=== PATIENT | female | born 1925 | race Caucasian/White ===

== ENCOUNTER 2017-01-01 01:29 | Emergency (ER) | payer MEDICARE, OTHER ==
[2017-01-01 01:50] VITALS: BP 144/77
--- NOTE | 2017-01-01 02:15 | EDM.PDOC ---
ED HPI GENERAL MEDICAL PROBLEM - General Chief Complaint: Gastrointestinal Problem Stated Complaint: CONSTIPATION Time Seen by Provider: 01/01/17 02:10 Source of Information: Reports: Patient, Family History Limitations: Reports: No Limitations - History of Present Illness INITIAL COMMENTS - FREE TEXT/NARRATIVE: pt has been pushing and trying to have a bm. She has been not having a bm for 2 days. Onset: Gradual Duration: Day(s): Location: Reports: Abdomen Associated Symptoms: Reports: Other ( constipation. ) Abdominal Pain Score (Numeric/FACES): 4 - Related Data Allergies Allergy/AdvReac Type Severity Reaction Status Date / Time penicillin G Allergy Unknown Hives Verified 05/20/16 15:46 Home Meds: Home Meds Docusate Sodium [Colace] 100 mg PO DAILY 12/27/13 [History] Acetaminophen [Tylenol Arthritis Pain] 650 mg PO Q6H 12/22/15 [History] Pantoprazole [ProTONIX] 40 mg PO DAILY 01/13/16 [History] Carvedilol [Carvedilol] 3.125 mg PO DAILY 01/01/17 [History] Lisinopril [Prinivil] 2.5 mg PO DAILY 01/01/17 [History] Past Medical History HEENT History: Reports: Allergic Rhinitis, Cataract, Hard of Hearing, Impaired Vision, Macular Degeneration, Other (See Below) Other HEENT History: cornea problems with right eye Cardiovascular History: Reports: Heart Murmur, Hypertension Other Cardiovascular History: "heart valve problem" Gastrointestinal History: Reports: Chronic Constipation, Colon Polyp, GERD, Other (See Below) Other Gastrointestinal History: Reports bladder medication causes side effect of loose stools Genitourinary History: Reports: Urinary Incontinence, UTI, Recurrent, Other ( See Below) Other Genitourinary History: Urinary frequency 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: Musculoskeletal History: Reports: Arthritis, Back Pain, Chronic, Fracture, Osteoarthritis, Other (See Below) Other Musculoskeletal History: ankle Psychiatric History: Reports: Anxiety - Infectious Disease History Infectious Disease History: Reports: Chicken Pox, Measles - Past Surgical History HEENT Surgical History: Reports: Adenoidectomy, Cataract Surgery, Tonsillectomy Female Surgical History: Reports: Hysterectomy, LEEP, Other (See Below) Musculoskeletal Surgical History: Reports: Other (See Below) Social & Family History - Tobacco Use Smoking Status *Q: Never Smoker Second Hand Smoke Exposure: No - Caffeine Use Caffeine Use: Reports: Coffee - Alcohol Use Days Per Week of Alcohol Use: 0 - Recreational Drug Use Recreational Drug Use: No - Living Situation & Occupation Living situation: Reports: , Alone ED ROS GENERAL - Review of Systems Review Of Systems: See Below Constitutional: Reports: No Symptoms HEENT: Reports: No Symptoms Respiratory: Reports: No Symptoms Cardiovascular: Reports: No Symptoms Endocrine: Reports: No Symptoms GI/Abdominal: Reports: Other (pressure in the rectum. ) : Reports: No Symptoms Musculoskeletal: Reports: No Symptoms ED EXAM, GI/ABD - Physical Exam Exam: See Below Text/Narrative:: pt is having pressure in the rectum. She is not having severe abdomanal pain. Exam Limited By: No Limitations General Appearance: Alert, Mild Distress Ears: Normal External Exam Nose: Normal Inspection Throat/Mouth: Normal Inspection Head: Atraumatic Neck: Normal Inspection Respiratory/Chest: No Respiratory Distress Cardiovascular: Regular Rate, Rhythm GI/Abdominal Exam: Other ( abdoman does not seem distended, it is soft. ) Rectal (Female) Exam: Other (pt has alot of soft sstool present. ) Back Exam: Other (no new findings. ) Course - Vital Signs Last Recorded V/S: Last Vital Signs Temp 37.2 C 01/01/17 01:48 Pulse 102 H 01/01/17 01:48 Resp 16 01/01/17 01:48 BP 144/77 H 01/01/17 01:48 Pulse Ox 93 L 01/01/17 01:48 - Orders/Labs/Meds Orders: Active Orders 24 hr Category Date Time Status Enema [RC] ASDIRECTED Care 01/01/17 02:09 Active - Re-Assessments/Exams Free Text/Narrative Re-Assessment/Exam: 01/01/17 02:13 rectal exam showed a fair mount of stool present. A fleet enema was tried. She had excellent results with this. The stool was soft. 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 If she is unable to pass stool try a ducolax supp. - My Orders Last 24 Hours: My Active Orders 01/01/17 02:09 Enema [RC] ASDIRECTED - Assessment/Plan Last 24 Hours: My Active Orders 01/01/17 02:09 Enema [RC] ASDIRECTED
== END 2017-01-01 02:50 | disposition home or self-care (01) ==
LOC: JP.ED 01:29
DX: K59.00 Constipation, unspecified (principal); I10 Essential (primary) hypertension; K21.9 Gastro-esophageal reflux disease without esophagitis; M19.90 Unspecified osteoarthritis, unspecified site; F41.9 Anxiety disorder, unspecified; Z87.440 Personal history of urinary (tract) infections; Z90.49 Acquired absence of other specified parts of digestive tract; Z98.49 Cataract extraction status, unspecified eye; Z90.710 Acquired absence of both cervix and uterus; Z79.899 Other long term (current) drug therapy; Z88.0 Allergy status to penicillin
CPT/HCPCS: 99283

== ENCOUNTER 2017-02-25 14:10 | Emergency (ER) | payer MEDICARE, OTHER ==
--- NOTE | 2017-02-25 15:22 | EDM.PDOC ---
ED HPI GENERAL MEDICAL PROBLEM - General Chief Complaint: Gastrointestinal Problem Stated Complaint: ADDED MEDICATION LOOSE STOOLS Time Seen by Provider: 02/25/17 14:55 Source of Information: Reports: Patient History Limitations: Reports: No Limitations - History of Present Illness INITIAL COMMENTS - FREE TEXT/NARRATIVE: Lisa presents today with complaints of diarrhea for 2 days. She reports loose stools that have improved since she started a new medication per Dr. Caballero methotrexate and folic acid. Lisa reports she telephoned Dr. aCballero and was instructed to report to the ER. She denies fever chills, nausea, vomiting, abdominal or back/flank pain. She denies blood stools. She does report flare of hemorrhoids at times. Onset Date: 02/23/17 Duration: Day(s):, Intermittent, Other (loose stools. ) denies Pain Score (Numeric/FACES): 0 - Related Data Allergies Allergy/AdvReac Type Severity Reaction Status Date / Time penicillin G Allergy Unknown Hives Verified 02/25/17 14:24 Home Meds: Home Meds Docusate Sodium [Colace] 100 mg PO DAILY 12/27/13 [History] Acetaminophen [Tylenol Arthritis Pain] 650 mg PO Q6H 12/22/15 [History] Pantoprazole [ProTONIX] 40 mg PO DAILY 01/13/16 [History] Carvedilol [Carvedilol] 3.125 mg PO DAILY 01/01/17 [History] Lisinopril [Prinivil] 2.5 mg PO DAILY 01/01/17 [History] Folic Acid 1 mg PO DAILY 02/25/17 [History] Methotrexate 7.5 mg PO Q7D 02/25/17 [History] Prednisone [IMW: predniSONE] 20 mg PO WITHBREAKFAST 02/25/17 [History] Past Medical History HEENT History: Reports: Allergic Rhinitis, Cataract, Hard of Hearing, Impaired Vision, Macular Degeneration, Other (See Below) Other HEENT History: cornea problems with right eye Cardiovascular History: Reports: Heart Murmur, Hypertension Other Cardiovascular History: "heart valve problem" Gastrointestinal History: Reports: Chronic Constipation, Colon Polyp, GERD, Other (See Below) Other Gastrointestinal History: Reports bladder medication causes side effect of loose stools Genitourinary History: Reports: Urinary Incontinence, UTI, Recurrent, Other ( See Below) Other Genitourinary History: Urinary frequency 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: Musculoskeletal History: Reports: Arthritis, Back Pain, Chronic, Fracture, Osteoarthritis, Other (See Below) Other Musculoskeletal History: ankle Psychiatric History: Reports: Anxiety - Infectious Disease History Infectious Disease History: Reports: Chicken Pox, Measles - Past Surgical History HEENT Surgical History: Reports: Adenoidectomy, Cataract Surgery, Tonsillectomy Female Surgical History: Reports: Hysterectomy, LEEP, Other (See Below) Musculoskeletal Surgical History: Reports: Other (See Below) Social & Family History - Tobacco Use Smoking Status *Q: Never Smoker Second Hand Smoke Exposure: No - Caffeine Use Caffeine Use: Reports: Coffee - Alcohol Use Days Per Week of Alcohol Use: 0 - Recreational Drug Use Recreational Drug Use: No - Living Situation & Occupation Living situation: Reports: , Alone ED ROS GENERAL - Review of Systems Review Of Systems: See Below Constitutional: Denies: Fever, Chills, Malaise, Weakness, Fatigue, Night Sweats , Diaphoresis, Decreased Appetite HEENT: Reports: No Symptoms Respiratory: Denies: Shortness of Breath, Wheezing, Cough, Sputum, Hemoptysis Cardiovascular: Denies: Chest Pain, Dyspnea on Exertion, Edema, Lightheadedness , Palpitations, PND, Syncope Endocrine: Reports: No Symptoms GI/Abdominal: Reports: Diarrhea. Denies: Abdominal Pain, Anorexia, Black Stool , Bloody Stool, Constipation, Difficulty Swallowing, Distension, Hematemesis, Hematochezia, Mucous in Stool, Nausea, Stool Incontinence, Vomiting : Denies: Discharge, Dysuria, Flank Pain, Frequency, Hematuria, Incontinence, Pain, Urgency, Urinary Retention Musculoskeletal: Reports: No Symptoms Skin: Denies: Bruising, Pruritis, Rash, Erythema Neurological: Denies: Confusion, Dizziness, Headache, Numbness, Tingling, Weakness Psychiatric: Reports: No Symptoms Hematologic/Lymphatic: Reports: No Symptoms Immunologic: Reports: No Symptoms ED EXAM, GI/ABD - Physical Exam Exam: See Below Text/Narrative:: Lisa presents today with complaint of loose stool. She reports she has had loose stools for about two days and since she started a new medication that Dr. Caballero ordered. She denies fever, chills, nausea, vomiting, abdominal pain or constipation. She reports she does have hemorroids. Exam Limited By: No Limitations General Appearance: Alert, WD/WN, No Apparent Distress Eyes: Bilateral: Normal Appearance, EOMI Ears: Normal External Exam, Normal Canal, Hearing Grossly Normal, Normal TMs Nose: Normal Inspection, Normal Mucosa, No Blood Throat/Mouth: Normal Inspection, Normal Lips, Normal Oropharynx, Normal Voice, No Airway Compromise Head: Atraumatic, Normocephalic Neck: Normal Inspection, Supple, Non-Tender, Full Range of Motion. No: Lymphadenopathy (R), Lymphadenopathy (L) Respiratory/Chest: No Respiratory Distress, Lungs Clear, Normal Breath Sounds, No Accessory Muscle Use, Chest Non-Tender Cardiovascular: Normal Peripheral Pulses, Regular Rate, Rhythm, No Edema, No Rub , Other (Murmur noted, chronic) GI/Abdominal Exam: Normal Bowel Sounds, Soft, Non-Tender, No Distention, No Mass. No: Guarding, Rigid, Rebound, Hernia Rectal (Female) Exam: Hemorrhoids Back Exam: Normal Inspection, Full Range of Motion. No: CVA Tenderness (R), CVA Tenderness (L) Extremities: Normal Inspection, Normal Range of Motion, Non-Tender, No Pedal Edema, Normal Capillary Refill Neurological: Alert, Oriented, CN II-XII Intact, Normal Cognition, Normal Gait, No Motor/Sensory Deficits Psychiatric: Normal Affect, Normal Mood Skin Exam: Warm, Dry, Intact, Normal Color, No Rash Lymphatic: No Adenopathy Course - Vital Signs Last Recorded V/S: Last Vital Signs Temp 37.0 C 02/25/17 14:28 Pulse 80 02/25/17 15:34 Resp 12 02/25/17 15:34 BP 98/70 02/25/17 15:34 Pulse Ox 96 02/25/17 15:34 - Orders/Labs/Meds Labs: Occult stool - negative - Re-Assessments/Exams Free Text/Narrative Re-Assessment/Exam: 02/25/17 15:10 Patient had BM in ER, formed, brown. 02/25/17 15:36 No other stools while in ER, patient ate applesauce, no other concerns. Her occult stool was reviewed with her. She will be discharged to home, making sure she manages her hemorrhoids and returns if she has three liquid stools or more in a day, fever, chills, nausea, vomiting, abdominal pain or other concerns. She can follow up with Dr. Caballero as scheduled the first part of March or earlier if she wishes. Departure - Departure Time of Disposition: 15:38 Disposition: Home, Self-Care 01 Condition: Good Clinical Impression: External bleeding hemorrhoids - Discharge Information Referrals: Amanda Núñez NP [Primary Care Provider] - Forms: ED Department Discharge Additional Instructions: The occult stool was negative for blood. Eat a regular diet. Use hydrocortisone 1%, small amount twice daily to anus as needed for hemorrhoids. Make sure you return if you have three liquid stools or more in a day, fever, chills, nausea, vomiting, abdominal pain or other concerns. You can follow up with Dr. Caballero as scheduled the first part of March or earlier if she wishes. - Assessment/Plan Assessment:: Hemorrhoids Plan: The occult stool was negative for blood. Eat a regular diet. Use hydrocortisone 1%, small amount twice daily to anus as needed for hemorrhoids. Patient instructed to return if she has three liquid stools or more in a day, fever, chills, nausea, vomiting, abdominal pain or other concerns. She can follow up with Dr. Caballero as scheduled the first part of March or earlier if she wishes.
[2017-02-25 15:34] VITALS: BP 98/70
== END 2017-02-25 16:06 | disposition home or self-care (01) ==
LOC: JP.ED 14:10
DX: K64.4 Residual hemorrhoidal skin tags (principal); I10 Essential (primary) hypertension; Z88.0 Allergy status to penicillin; Z79.899 Other long term (current) drug therapy; Z87.440 Personal history of urinary (tract) infections
CPT/HCPCS: 82272; 99283; 99284

== ENCOUNTER 2017-09-03 12:01 | Emergency (ER) | payer MEDICARE, OTHER | END 2017-09-03 13:46 | disposition left against medical advice (07) | LOC: JP.ED 12:01 | DX: Z53.20 Procedure and treatment not carried out because of patient's decision for unspecified reasons (principal) ==

== ENCOUNTER 2017-10-20 11:01 | Emergency (ER) | payer MEDICARE, OTHER ==
[2017-10-20 11:28] VITALS: BP 187/79
--- NOTE | 2017-10-20 11:58 | EDM.PDOC ---
ED HPI GENERAL MEDICAL PROBLEM - General Chief Complaint: Gastrointestinal Problem Stated Complaint: ISSUES WITH STOOL Time Seen by Provider: 10/20/17 11:42 Source of Information: Reports: Patient, RN Notes Reviewed History Limitations: Reports: No Limitations - History of Present Illness INITIAL COMMENTS - FREE TEXT/NARRATIVE: 89-year-old female presents to the emergency department today with complaint of black stools, she has had diarrhea for the last 2 days noticed black stool yesterday but has not noticed any today. Recently started nonsteroidal anti- inflammatory of nabumetone for spinal stenosis. Takes medication daily with food has been on this medication for about 2 months no other symptoms at this time - Related Data Allergies Allergy/AdvReac Type Severity Reaction Status Date / Time penicillin G Allergy Unknown Hives Verified 02/25/17 14:24 Home Meds: Home Meds Docusate Sodium [Colace] 100 mg PO DAILY 12/27/13 [History] Acetaminophen [Tylenol Arthritis Pain] 650 mg PO Q6H 12/22/15 [History] Pantoprazole [ProTONIX] 40 mg PO DAILY 01/13/16 [History] Carvedilol 3.125 mg PO DAILY 01/01/17 [History] Lisinopril [Prinivil] 2.5 mg PO DAILY 01/01/17 [History] Folic Acid 1 mg PO DAILY 02/25/17 [History] Methotrexate 7.5 mg PO Q7D 02/25/17 [History] Nabumetone [Relafen] 1 tab PO DAILY 10/20/17 [History] Past Medical History HEENT History: Reports: Allergic Rhinitis, Cataract, Hard of Hearing, Impaired Vision, Macular Degeneration, Other (See Below) Other HEENT History: cornea problems with right eye Cardiovascular History: Reports: Heart Murmur, Hypertension Other Cardiovascular History: "heart valve problem" Gastrointestinal History: Reports: Chronic Constipation, Colon Polyp, GERD Other Gastrointestinal History: Reports bladder medication causes side effect of loose stools Genitourinary History: Reports: Urinary Incontinence, UTI, Recurrent, Other ( See Below) Other Genitourinary History: Urinary frequency 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: Musculoskeletal History: Reports: Arthritis, Back Pain, Chronic, Fracture, Osteoarthritis, Other (See Below) Other Musculoskeletal History: ankle Psychiatric History: Reports: Anxiety - Infectious Disease History Infectious Disease History: Reports: Chicken Pox, Measles - Past Surgical History HEENT Surgical History: Reports: Adenoidectomy, Cataract Surgery, Tonsillectomy Female Surgical History: Reports: Hysterectomy, LEEP, Other (See Below) Other Female Surgeries/Procedures: bladder repair for incontinence Musculoskeletal Surgical History: Reports: Other (See Below) Other Musculoskeletal Surgeries/Procedures:: set broken ankle Social & Family History - Tobacco Use Smoking Status *Q: Never Smoker - Caffeine Use Caffeine Use: Reports: Coffee - Recreational Drug Use Recreational Drug Use: No - Living Situation & Occupation Living situation: Reports: , Alone ED ROS GENERAL - Review of Systems Review Of Systems: See Below Constitutional: Reports: No Symptoms Respiratory: Reports: No Symptoms Cardiovascular: Reports: No Symptoms GI/Abdominal: Reports: Black Stool, Diarrhea. Denies: Abdominal Pain, Nausea, Vomiting : Reports: No Symptoms ED EXAM, GI/ABD - Physical Exam Exam: See Below Exam Limited By: No Limitations General Appearance: Alert, WD/WN, No Apparent Distress Respiratory/Chest: No Respiratory Distress GI/Abdominal Exam: Soft, Non-Tender Rectal (Female) Exam: Normal Exam, Normal Rectal Tone. No: Black Stool, Bloody Stool, Decreased Rectal Tone, Hemorrhoids, Perirectal Abscess, Rectal Fissure, Tenderness Course - Vital Signs Last Recorded V/S: Last Vital Signs Temp 97.5 F 10/20/17 11:29 Pulse 90 10/20/17 11:29 Resp 14 10/20/17 11:29 BP 187/79 H 10/20/17 11:29 Pulse Ox 96 10/20/17 11:29 - Orders/Labs/Meds Orders: Active Orders 24 hr Category Date Time Status OCCULT BLOOD DIAGNOSTIC [OP] Stat Lab 10/20/17 12:07 Ordered OCCULT BLOOD SCREEN [OP] Stat Lab 10/20/17 11:54 Stop Req Labs: Laboratory Tests 10/20/17 10/20/17 Range/Units 12:00 12:00 WBC 6.2 (4.5-11.0) K/uL RBC 4.07 (3.30-5.50) M/uL Hgb 13.1 (12.0-15.0) g/dL Hct 38.9 (36.0-48.0) % MCV 96 (80-98) fL MCH 32 H (27-31) pg MCHC 34 (32-36) % Plt Count 209 (150-400) K/uL Neut % (Auto) 58 (36-66) % Lymph % (Auto) 30 (24-44) % [place] % (Auto) 11 H (2-6) % Eos % (Auto) 1 L (2-4) % Baso % (Auto) 1 (0-1) % Sodium 139 L (140-148) mmol/L Potassium 3.7 (3.6-5.2) mmol/L Chloride 102 (100-108) mmol/L Carbon Dioxide 24 (21-32) mmol/L Anion Gap 16.7 H (5.0-14.0) mmol/L BUN 18 (7-18) mg/dL Creatinine 0.9 (0.6-1.0) mg/dL Est Cr Clr Drug Dosing 30.44 mL/min Estimated GFR (MDRD) 59 L (>60) Glucose 92 (74-106) mg/dL Calcium 8.6 (8.5-10.1) mg/dL Departure - Departure Time of Disposition: 12:52 Disposition: Home, Self-Care 01 Condition: Good Clinical Impression: Black stools - Discharge Information Referrals: PCP,None [Primary Care Provider] - Forms: ED Department Discharge Additional Instructions: Recommend stopping your medication of nabumetone, use Tylenol as needed for pain control, please follow-up with your primary care provider to discuss further treatment and/or evaluation which may include endoscopy depending on risk benefits - My Orders Last 24 Hours: My Active Orders 10/20/17 11:54 OCCULT BLOOD SCREEN [OP] Stat 10/20/17 12:07 OCCULT BLOOD DIAGNOSTIC [OP] Stat - Assessment/Plan Last 24 Hours: My Active Orders 10/20/17 11:54 OCCULT BLOOD SCREEN [OP] Stat 10/20/17 12:07 OCCULT BLOOD DIAGNOSTIC [OP] Stat Plan: Assessment Acuity = acute Site and laterality = black colored stools with diarrhea Etiology = unclear etiology possibly related to recent nonsteroidal anti- inflammatory Manifestations = none Location of injury = Home Lab values = hemoglobin stable at 13.1 remainder of blood work is unremarkable occult blood was negative Plan Recommend stopping nonsteroidal anti-inflammatory, use Tylenol for pain control follow-up with primary care for further evaluation which may include endoscopy depending on risk-benefit This note was dictated using [employer] voice recognition software please call with any questions on syntax or grammar.
== END 2017-10-20 13:33 | disposition home or self-care (01) ==
LOC: JP.ED 11:01
DX: R19.5 Other fecal abnormalities (principal); R19.7 Diarrhea, unspecified; Z88.0 Allergy status to penicillin; Z79.899 Other long term (current) drug therapy
CPT/HCPCS: 36415; 80048; 82270; 82272; 85025; 99284